=== PATIENT | female | born 1980 | race Caucasian/White ===

== ENCOUNTER → 2021-04-21 12:25 | Outpatient (CLI) | payer OTHER, SELFPAY ==
--- NOTE | 2021-04-21 | DI.MG.S_ITS ---
BILATERAL DIGITAL SCREENING MAMMOGRAM 3D/2D WITH CAD: 04/21/2021 CLINICAL: Baseline exam. Routine screening. No prior exams were available for comparison. The tissue of both breasts is heterogeneously dense. This may lower the sensitivity of mammography. Current study was also evaluated with a Computer Aided Detection (CAD) system. No significant masses, calcifications, or other findings are seen in either breast. IMPRESSION: NEGATIVE There is no mammographic evidence of malignancy. A 1 year screening mammogram is recommended. This exam was interpreted at Station ID: [id number]. NOTE: For mammograms, a report in lay terms will be sent to the patient. Approximately 15% of breast malignancies will not be visualized mammographically. In the management of a palpable breast mass, a negative mammogram must not discourage biopsy of a clinically suspicious lesion. Electronically Signed By: Padmini yan/ashley:04/21/2021 15:37:06 letter sent: Normal Exam ACR BI-RADS Category 1: Negative [id number]
== END ==
PROVIDERS: Referring Provider Family Medicine; Visit Provider Family Medicine
DX: Z12.31 Encounter for screening mammogram for malignant neoplasm of breast (principal)
CPT/HCPCS: 77063; 77067

== ENCOUNTER → 2022-05-28 12:19 | Outpatient (CLI) | payer OTHER, SELFPAY ==
--- NOTE | 2022-05-28 | DI.RAD.S_ITS ---
PROCEDURE: XR KNEE LT 3V INDICATIONS: Pain in left knee TECHNIQUE: 3 views of the knee were acquired. COMPARISON: None. FINDINGS: Bones: No fractures or dislocations. No suspicious bony lesions. Soft tissues: No joint effusion. No suspicious soft tissue calcifications. IMPRESSION: Normal left knee radiographs Approved by: Min Felipe M.D. on 05/28/2022 at 16:16
== END ==
PROVIDERS: PCP Family Medicine; Referring Provider Family Medicine; Visit Provider Family Medicine
DX: M25.562 Pain in left knee (principal)
CPT/HCPCS: 73562

== ENCOUNTER → 2022-06-24 16:34 | Outpatient (CLI) | payer OTHER, SELFPAY ==
--- NOTE | 2022-06-24 | DI.MRI.S_ITS ---
PROCEDURE: MR KNEE LT WO CON INDICATIONS: pain in lt knee TECHNIQUE: Noncontrast sagittal PD fast spin echo and T2 fast spin echo with fat saturation, sagittal 3-D FLASH with fat saturation; coronal T1 spin echo and PD fast spin echo with fat saturation, and axial PD fast spin echo with fat saturation through the knee. COMPARISON: [facility], CR, XR KNEE LT 3V, 05/28/2022, 12:24. FINDINGS: Image quality: Excellent. Anterior Cruciate Ligament: Intact. Posterior Cruciate Ligament: Intact. Medial Collateral Ligament: Intact. Lateral Collateral Ligament: Intact. Medial Meniscus: There is horizontal oblique tearing of the posterior horn of the medial meniscus extending to the inner third of the tibial articular surface Lateral Meniscus: Intact. Medial and Lateral Tendons: The semimembranosus tendon insertions and meniscocapsular junction appear intact. Visualized portions of the pes anserinus tendons appear normal. No abnormal bursal fluid. The long and short heads of the biceps femoris tendon appear intact. The popliteus tendon appears intact. No signs of posterolateral corner injury. Iliotibial band appears normal. Anterior Structures: The quadriceps and patellar tendons appear intact. No patellar subluxation. No femoral trochlear dysplasia or ventral trochlear prominence. No edema in the infrapatellar fat pad. Bones: Mild osseous edema is seen in the medial tibial plateau that is most likely reactive to the adjacent meniscal tear. No acute osseous contusion or fracture is seen. Medial Femorotibial Cartilage: Intact. Lateral Femorotibial Cartilage: Intact. Patellofemoral Cartilage: Intact. Soft Tissues: There is a moderate amount of joint fluid. A trace medial popliteal cyst is present. There is a small amount of fluid tracking along the popliteus tendon sheath.. The musculature surrounding the knee is normal in bulk. IMPRESSION: 1. Horizontal oblique tear of the posterior horn of the medial meniscus extending to the inner third of the tibial articular surface. Mild reactive edema is seen in the adjacent medial tibial plateau. 2. Cruciate and collateral ligaments are intact. No acute trabecular bone injury. 3. Moderate joint effusion. 1. Approved by: Trace Owens M.D. on 06/25/2022 at 9:02
== END ==
PROVIDERS: PCP Family Medicine; Referring Provider Family Medicine; Visit Provider Family Medicine
DX: S83.242A Other tear of medial meniscus, current injury, left knee, initial encounter (principal); M25.462 Effusion, left knee; M25.562 Pain in left knee
CPT/HCPCS: 73721

== ENCOUNTER → 2024-03-09 16:05 | Outpatient (CLI) | payer OTHER, SELFPAY | PROVIDERS: PCP Family Medicine; Referring Provider Internal Medicine; Visit Provider Internal Medicine | DX: Z23 Encounter for immunization (principal) | CPT/HCPCS: 90471; 90656 ==

== ENCOUNTER → 2024-11-08 12:42 | Outpatient (CLI) | payer OTHER, SELFPAY ==
--- NOTE | 2024-11-08 12:44 | DI.MG.S_ITS ---
MM screening mammo BI: 11/08/2024. BI-RADS: 0 CLINICAL: 44-year old female for bilateral screening mammogram. Tyrer-Cuzick lifetime risk of 20.5%. No personal or first-degree family history of breast cancer. Current reported family history of breast cancer: maternal grandmother and maternal aunt. PRIOR EXAMS 04/21/2021. MAMMOGRAPHY TECHNIQUE: 2D and 3D (tomosynthesis) digital mammographic views obtained, with additional images as needed for full coverage. Current study was also evaluated with a Computer Aided Detection (CAD) system. DENSITY C. The breasts are heterogeneously dense, which may obscure small masses. MAMMOGRAPHY FINDINGS Right: No suspicious mass, asymmetry, microcalcification, or other abnormality seen. Left: CC only, Outer, Anterior depth: Asymmetry needing additional imaging evaluation. IMPRESSION: Right * No evidence of malignancy. Left (Asymmetry): CC only, Outer, Anterior depth * Incomplete - asymmetry needing additional imaging evaluation. RECOMMENDATIONS Left: CC only, Outer, Anterior depth * Further evaluation with diagnostic mammography and diagnostic ultrasound. Ultrasound to be performed only if needed. OVERALL ASSESSMENT CATEGORY BI-RADS-0: Incomplete - Need Additional Imaging Evaluation. ELECTRONICALLY SIGNED: Lore Villafuerte M.D. on 11/08/2024 at 05:34:25 PM PT Interpreting Station ID: [id number]
== END ==
PROVIDERS: PCP Family Medicine; Referring Provider Family Medicine; Visit Provider Family Medicine
DX: Z12.31 Encounter for screening mammogram for malignant neoplasm of breast (principal); Z80.3 Family history of malignant neoplasm of breast; R92.333 Mammographic heterogeneous density, bilateral breasts
CPT/HCPCS: 77063; 77067

== ENCOUNTER → 2024-12-06 09:27 | Outpatient (CLI) | payer OTHER, SELFPAY ==
--- NOTE | 2024-12-06 09:29 | DI.MG.S_ITS ---
MM diagnostic mammo unilat LT, US breast LT limited: 12/06/2024 BI-RADS: 3 CLINICAL: 44-year old female for left diagnostic mammogram and left diagnostic breast ultrasound that is a recall from screening on 11/08/2024. Tyrer-Cuzick lifetime risk of 20.5%. No personal or first-degree family history of breast cancer. Current reported family history of breast cancer: maternal grandmother and maternal aunt. PRIOR EXAMS 11/08/2024, 04/21/2021. MAMMOGRAPHY TECHNIQUE: 2D and 3D (tomosynthesis) digital mammographic views obtained, with additional images as needed for full coverage. Current study was also evaluated with a Computer Aided Detection (CAD) system. ULTRASOUND TECHNIQUE Real-time riley scale and color doppler imaging of the area of clinical interest was performed with image documentation. Left targeted breast ultrasound of the area of clinical interest and the axilla was performed with image documentation. DENSITY Left: C. The breasts are heterogeneously dense, which may obscure small masses. MAMMOGRAPHY FINDINGS Left (finding-1): CC only, Outer, Anterior depth: There is an asymmetry seen only on one view. This finding is less conspicuous with rolled views and is favored to represent superimposed fibroglandular tissue. ULTRASOUND FINDINGS Left (finding-1): Upper at 12:00, 1 cm from nipple, measuring 0.5 x 0.3 x 0.4 cm. Previous report: CC only, Outer: There are clustered microcysts. This is seen within heterogeneous fibroglandular tissue which may correlate to the asymmetry seen on mammogram. IMPRESSION: Left: Upper at 12:00, 1 cm from nipple, measuring 0.5 x 0.3 x 0.4 cm. Previous report: CC only, Outer * Probably Benign. RECOMMENDATIONS Left: Upper at 12:00, 1 cm from nipple * Six month followup with diagnostic ultrasound and diagnostic mammography. COMMENTS: Findings and recommendations were conveyed to the patient during today's evaluation. In addition, this patient has an elevated lifetime risk for breast cancer of over 20%. Recommend consideration for annual screening breast MRI as an adjunct to screening mammography. OVERALL ASSESSMENT CATEGORY BI-RADS-3: Probably Benign. ELECTRONICALLY SIGNED: Leni Cheney M.D. on 12/06/2024 at 12:50:08 PM PT Interpreting Station ID: [id number]
--- NOTE | 2024-12-06 09:30 | DI.US.S_ITS ---
PROCEDURE: US BREAST LT LIMITED COMPARISON: None. INDICATIONS: ABNORM MAMMO FINDINGS: IMPRESSION: Dictated by: Leni Cheney M.D. on 12/06/2024 at 10:45 Approved by: Leni Cheney M.D. on 12/06/2024 at 11:05
--- NOTE | 2024-12-06 10:28 | DI.US.S_ITS ---
Patient Name: SUNDAY MAGUIRE date: 1980 Sex: F Attending Physician: Armani Indications: Date: 12/06/2024 12:50 At the request of: JACQUES RUCKER Procedure: US breast LT limited MM diagnostic mammo unilat LT, US breast LT limited: 12/06/2024 BI-RADS: 3 CLINICAL: 44-year old female for left diagnostic mammogram and left diagnostic breast ultrasound that is a recall from screening on 11/08/2024. Tyrer-Cuzick lifetime risk of 20.5%. No personal or first-degree family history of breast cancer. Current reported family history of breast cancer: maternal grandmother and maternal aunt. PRIOR EXAMS 11/08/2024, 04/21/2021. MAMMOGRAPHY TECHNIQUE: 2D and 3D (tomosynthesis) digital mammographic views obtained, with additional images as needed for full coverage. Current study was also evaluated with a Computer Aided Detection (CAD) system. ULTRASOUND TECHNIQUE Real-time riley scale and color doppler imaging of the area of clinical interest was performed with image documentation. Left targeted breast ultrasound of the area of clinical interest and the axilla was performed with image documentation. DENSITY Left: C. The breasts are heterogeneously dense, which may obscure small masses. MAMMOGRAPHY FINDINGS Left (finding-1): CC only, Outer, Anterior depth: There is an asymmetry seen only on one view. This finding is less conspicuous with rolled views and is favored to represent superimposed fibroglandular tissue. Continued Report - Page 2 of 2 Patient Name: SUNDAY MAGUIRE date: 1980 Sex: F Attending Physician: Armani Indications: Date: 12/06/2024 12:50 At the request of: JACQUES RUCKER Procedure: US breast LT limited ULTRASOUND FINDINGS Left (finding-1): Upper at 12:00, 1 cm from nipple, measuring 0.5 x 0.3 x 0.4 cm. Previous report: CC only, Outer: There are clustered microcysts. This is seen within heterogeneous fibroglandular tissue which may correlate to the asymmetry seen on mammogram. IMPRESSION: Left: Upper at 12:00, 1 cm from nipple, measuring 0.5 x 0.3 x 0.4 cm. Previous report: CC only, Outer * Probably Benign. RECOMMENDATIONS Left: Upper at 12:00, 1 cm from nipple * Six month followup with diagnostic ultrasound and diagnostic mammography. COMMENTS: Findings and recommendations were conveyed to the patient during today's evaluation. In addition, this patient has an elevated lifetime risk for breast cancer of over 20%. Recommend consideration for annual screening breast MRI as an adjunct to screening mammography. OVERALL ASSESSMENT CATEGORY BI-RADS-3: Probably Benign. ELECTRONICALLY SIGNED: Leni Cheney M.D. on 12/06/2024 at 12:50:08 PM PT Interpreting Station ID: [id number]
== END ==
LOC: MAMMO 09:28
PROVIDERS: PCP Family Medicine; Referring Provider Family Medicine; Visit Provider Family Medicine
DX: R92.8 Other abnormal and inconclusive findings on diagnostic imaging of breast (principal); R92.332 Mammographic heterogeneous density, left breast; N64.89 Other specified disorders of breast; Z80.3 Family history of malignant neoplasm of breast
CPT/HCPCS: 76642; 77065; G0279